=== PATIENT | male | born 1975 | race Caucasian/White ===

== ENCOUNTER 2024-03-19 10:49 | Outpatient (AMB) | payer OTHER, SELFPAY ==
--- NOTE | 2024-03-19 10:57 | MHC.PC.OV ---
Vital Signs 03/19/24 10:59 Height 6 ft 0.05 in Weight 218 lb 4 oz BMI 29.6 BP 138/88 Blood Pressure Location Rt brachial Position Sitting Pulse 55 Pulse Source Pulse Oximeter Temp 97.7 F Temp Source Oral Pulse Oximetry (%) 100 Oxygen Delivery Method Room Air Intake Visit Reasons: MAYELA from [facility] Intake Note: New patient visit Cigarette Lighter Repairer Required: No Allergies No Known Allergies Allergy (Verified 03/19/24 10:58) Medication List - Last Reconciled 03/19/24 by Amairani Mera PA-C No Known Home Meds Tobacco use date assessed: 03/19/24 Dental Screening Dental Screen Date: 03/19/24 Did you have a dental visit in the last 12 months?: Yes Did you have a dental problem in the last 6 months where you did not have access to dental care?: No Was dental information given to patient?: Patient has dentist HPI MAYELA from [facility] HPI Details Patient is a 48-year-old male with a significant past medical history of elevated blood pressure readings, vitamin B12 deficiency presenting today to [facility]. He states today that he is a bit tired more than normal but wonders if it is related to his lifestyle. He is very stressed out at work and does not like his job. He states that it is frustrating but he has to wait another year before he can retire. He wants to make sure that everything is healthy with him. His blood pressure is elevated today in the office at 138/88. It was elevated at [facility] in similar. He states that he does not want to take medications. His father did of an OH in his late 40s. His brother also has hypertension. He states that he is very conscientious of his diet and exercise. His is a nurse in a states that he will have her start checking his blood pressures because he really does not want to take anything for this. He states he is aware of untreated hypertension in the risks associated with it. He denies any chest pain or shortness on breath. 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 His maternal grandfather did have skin cancer he believes it was melanoma. He is not see a vp rheumatology. 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 1. Little interest or pleasure in doing things: not at all 2. Feeling down, depressed, or hopeless: not at all 3. Trouble falling or staying asleep, or sleeping too much: not at all 4. Feeling tired or having little energy: not at all 5. Poor appetite or overeating: not at all 6. Feeling bad about yourself - or that you are a failure or have let yourself or your family down: not at all 7. Trouble concentrating on things, such as reading the newspaper or watching television: not at all 8. Moving or speaking so slowly that other people could have noticed. Or the opposite - being so fidgety or restless that you have been moving around a lot more than usual: not at all 9. Thoughts that you would be better off or of hurting yourself in some way: not at all Total score: 0 Depression Screening Interpretation: Negative Depression Screening Done: Yes 58555 - PHQ-9 Billing: Yes Source: Developed by Drs. Brendan Kelley, Vi Conway, Jesus Hernandez and colleagues, with an educational rocael from [employer]. Thrive Questionnaire Date Thrive assessed: 03/19/24 I am a: Patient What is your living situation today?: I have a steady place to live Within the past 12 months, did the food you bought not last and you didn't have the money to get more?: Never true Within the past 12 months, did you worry whether your food would run out before you got money to buy more?: Never true Do you have trouble paying for medicines?: No Do you have trouble getting transportation to medical appointments?: No Do you have trouble paying your heating and electricity bill?: No Do you have trouble taking care of your child, family member or friend?: No Do you have trouble with day-to-day activities such as bathing, preparing meals, shopping, managing finances, etc.?: No Are you currently unemployed and looking for a job?: No Are you interested in more education?: No Please select the resources that you would like help with: None Currently or been in a relationship where the following occur: No concerns reported THRIVE Score: 0 AUDIT C Alcohol Use Questionnaire (AUDIT-C) 1. How often do you have a drink containing alcohol?: 2-4 times a month 2. How many drinks containing alcohol do you have on a typical day when you are drinking?: 3 or 4 3. How often do you have six or more drinks on one occasion?: Less than monthly Total Score: 4 NEREIDA-7 AMB Questionnaire NEREIDA-7 Date NEREIDA - 7 assessed: 03/19/24 Feeling nervous, anxious, or on edge: 0 = Not at all Not being able to stop or control worryin = Not at all Worrying too much about different things: 0 = Not at all Trouble relaxin = Not at all Being so restless that it is hard to sit still: 0 = Not at all Becoming easily annoyed or irritable: 0 = Not at all Feeling afraid as if something awful might happen: 0 = Not at all Total NEREIDA-7 score (0-4 normal; 5-9 mild; 10-14 moderate; 15-21 severe): 0 Source: Developed by Drs. Brendan Kelley, Vi Conway, Jesus Hernadnez and colleagues, with an educational rocael from [employer]. NEREIDA-7 Assessment Billing NEREIDA-7 Assessment Tool: NEREIDA-7 Assessment 57668 Physical exam (Primary Care) Vital Signs: Last Vital Signs Temp 97.7 F 03/19/24 10:59 Pulse 55 03/19/24 10:59 BP 138/88 03/19/24 10:59 Pulse Ox 100 03/19/24 10:59 Oxygen Delivery Method Room Air 03/19/24 10:59 BMI result Body Mass Index 29.6 Tobacco/Smoking Status: Tobacco use Status Tobacco use date assessed 03/19/24 03/19/24 11:07 Patient Tobacco Use Status Never used Tobacco 03/19/24 11:07 e-Cigarette/Vaping Use Never Used 03/19/24 11:07 PHQ-9: PHQ-9 Score PHQ-9: Total score 0 03/19/24 11:07 Depression Screening Interpretation: Negative Thrive Assessment: Date of Thrive Assessment Date Thrive assessed 03/19/24 03/19/24 11:12 Currently or been in a relationship where the following occur: No concerns reported Const Orientation/consciousness: patient oriented x3 HENMT Ears: hearing grossly normal bilaterally Neck Thyroid: Thyroid normal Lymphatic: no lymphadenopathy noted Resp Auscultation: clear to auscultation bilaterally Cardio Rate: regular rate Rhythm: regular rhythm Heart sounds: S1 normal heart sound present and S2 normal heart sound present GI Inspection: Yes normal to inspection Palpation (GI): Soft to palpation and Other GI palpation findings present (nontender, no cva tenderness) Auscultation: normoactive bowel sounds Rectal Exam - Male: Yes deferred Skin General skin exam: no rashes or lesions noted Neuro General: patient oriented x3, gait normal and no focal motor deficits Coding Level of Care Code Est Pt Level 4 (88310) Complex EM visit Add On G2211 Diagnoses Fatigue, unspecified type R53.83 Fatigue type: unspecified Elevated blood pressure reading R03.0 Family history of heart attack Z82.49 Family history of skin cancer Z80.8 Additional Codes NEREIDA-7 Assessment Billing - NEREIDA-7 Assessment Tool: NEREIDA-7 Assessment 95535 ([id number]) Assessment & Plan Assessment & Plan (1) Fatigue: Code(s): R53.83 - Other fatigue Category: Medical Qualifiers: Fatigue type: unspecified Qualified Code(s): R53.83 - Other fatigue Plan: Labs ordered today. We will follow up pending test results. (2) Elevated blood pressure reading: Code(s): R03.0 - Elevated blood-pressure reading, without diagnosis of hypertension Category: Medical Plan: We did discuss the risks associated with untreated hypertension. He will monitor blood pressures at home and follow up in 6 months. He will follow up sooner pressures are elevated at home. Labs ordered today. (3) Family history of heart attack: Code(s): Z82.49 - Family history of ischemic heart disease and other diseases of the circulatory system Category: Medical Plan: Coronary artery CT ordered. (4) Family history of skin cancer: Code(s): Z80.8 - Family history of malignant neoplasm of other organs or systems Category: Medical Plan: Referral to Dermatology. Orders: Orders Comprehensive [place]. Panel Fast Today R53.83 - Other fatigue, Z13.220 - Encounter for screening for lipoid disorders Complete Blood Count Auto Diff Today R53.83 - Other fatigue, Z13.220 - Encounter for screening for lipoid disorders IRON PROFILE Today R53.83 - Other fatigue, Z13.220 - Encounter for screening for lipoid disorders Prostate Specific Antigen Scr Today R53.83 - Other fatigue, Z01.89 - Encounter for other specified special examinations, Z13.220 - Encounter for screening for lipoid disorders UA CC w/rflx Micro + Cult Today Z13.220 - Encounter for screening for lipoid disorders Lyme IgG/IgM w/reflex to WB Today R53.83 - Other fatigue, Z13.220 - Encounter for screening for lipoid disorders TSH reflex Free T4 Today R53.83 - Other fatigue, Z13.220 - Encounter for screening for lipoid disorders Magnesium Today R53.83 - Other fatigue, Z13.220 - Encounter for screening for lipoid disorders Vitamin B12 and Folate Today R53.83 - Other fatigue, Z13.220 - Encounter for screening for lipoid disorders Ferritin Today R53.83 - Other fatigue, Z13.220 - Encounter for screening for lipoid disorders Testosterone, Free/Total Today R53.83 - Other fatigue, Z13.220 - Encounter for screening for lipoid disorders B Type Natriuretic Peptide Today R03.0 - Elevated blood-pressure reading, without diagnosis of hypertension, R53.83 - Other fatigue, Z82.49 - Family history of ischemic heart disease and other diseases of the circulatory system CT Coronary Calcium Score Today Z82.49 - Family history of ischemic heart disease and other diseases of the circulatory system Referrals Dermatology Referral Z12.83 - Encounter for screening for malignant neoplasm of skin, Z80.8 - Family history of malignant neoplasm of other organs or systems
[2024-03-19 10:59] VITALS: BP 138/88; PULSE 55; TEMP 36.5; O2SAT 100; BMI 29.6
== END 2024-03-19 11:44 | disposition home or self-care (01) ==
PROVIDERS: PCP Physician Assistant; Visit Provider Physician Assistant
DX: R53.83 Other fatigue (principal); R03.0 Elevated blood-pressure reading, without diagnosis of hypertension; Z82.49 Family history of ischemic heart disease and other diseases of the circulatory system; Z80.8 Family history of malignant neoplasm of other organs or systems

== ENCOUNTER → 2024-03-19 10:49 | Outpatient (BNVA) | payer OTHER, SELFPAY | PROVIDERS: PCP Physician Assistant; Visit Provider Physician Assistant | DX: R53.83 Other fatigue (principal); R03.0 Elevated blood-pressure reading, without diagnosis of hypertension; Z82.49 Family history of ischemic heart disease and other diseases of the circulatory system; Z80.8 Family history of malignant neoplasm of other organs or systems | CPT/HCPCS: 96127 ==

== ENCOUNTER 2024-03-19 11:46 | Outpatient (REF) | payer OTHER, SELFPAY ==
[2024-03-19 14:07] LABS: Appearance Urine Clear; Color Urine Yellow; Glucose Urine UA Negative (Negative); Leukocyte Esterase Urine Negative (Negative); Nitrite Urine Negative (Negative); Specific Gravity - Urine <= 1.005 (1.005-1.025); Urine Blood Negative (Negative); Urine Ketones Negative (Negative); Urine Protein Negative (Neg-Trace)
[2024-03-19 14:07] LABS: MANUAL DIFF FLAG NO
[2024-03-19 14:09] LABS: Basophils Absolute Auto 0.1 X10*3/uL (0.0-0.2); Basophils Percent Auto 1.8 % (0-2); Eosinophils Absolute Auto 0.1 X10*3/uL (0.0-0.4); Eosinophils Percent Auto 2.8 % (0-4); Hematocrit 45.5 % (42.0-52.0); Hemoglobin 15.6 g/dl (14.0-18.0); Lymphocytes Absolute Auto 1.4 X10*3/uL (1.2-4.9); Lymphocytes Percent Auto 34.3 % (20-40); Mean Corpuscular HGB Conc 34.3 g/dl (31.0-36.0); Mean Corpuscular Hemoglobin 33.4 pg (27.0-33.0); Mean Corpuscular Volume 97.4 fL (80.0-98.0); Mean Platelet Volume 10.9 fL (9.4-12.4); Monocytes Absolute Auto 0.4 X10*3/uL (0.1-1.2); Monocytes Percent Auto 11.1 % (2-11); Platelet Count 193 X10*3/uL (160-400); Red Blood Count 4.67 X10*6/uL (4.60-5.80); Red Cell Distribution Width 13.2 % (11.0-16.0)
[2024-03-19 14:36] LABS: Alanine Aminotransferase 41 U/L (0-40); Albumin Level 4.5 g/dL (3.5-5.0); Alkaline Phosphatase 42 U/L (39-117); Anion Gap 14 (12-20); Aspartate Amino Transferase 35 U/L (5-37); Blood Urea Nitrogen 11 mg/dL (9-16); Calcium 9.4 mg/dL (8.4-10.2); Carbon Dioxide 28 mmol/L (22-29); Chloride 99 mmol/L (96-108); Estimated Glomerular Filt Rate > 60; Glucose Fasting 76 mg/dL (60-99); Iron 165 mcg/dL (45-160); Magnesium 2.1 mg/dL (1.6-2.6); Percent Iron Saturation 55 % (15-50); Potassium 4.2 mmol/L (3.3-5.1); Sodium 137 mmol/L (135-145); Total Iron Binding Capacity 302 mcg/dL (228-428); Total Protein 7.3 g/dL (6.5-8.0); Unsaturated Iron Binding 137 ug/dL
[2024-03-19 14:37] LABS: B Type Natriuretic Peptide < 10 pg/mL (<100)
[2024-03-19 14:54] LABS: Ferritin 198 ng/mL (20-250); TSH reflex Free T4 1.93 uIU/mL (0.32-4.0)
[2024-03-19 14:58] LABS: Folate > 20.0 ng/mL (> or = 4.0); Prostate Specific Antigen Scr 1.69 ng/mL (<0.05-4.0); Vitamin B12 718 pg/mL (200-900)
[2024-03-21 03:18] LABS: Lyme Abs Screen <0.90 index
[2024-03-24 20:18] LABS: Testosterone, Free 101.4 pg/mL (35.0-155.0); Testosterone, Total 852 ng/dL (250-1100)
== END 2024-03-19 11:47 | disposition home or self-care (01) ==
LOC: HO.WFDLDS 11:46
PROVIDERS: Visit Provider Physician Assistant
DX: R53.83 Other fatigue (principal); R03.0 Elevated blood-pressure reading, without diagnosis of hypertension; Z82.49 Family history of ischemic heart disease and other diseases of the circulatory system; Z13.220 Encounter for screening for lipoid disorders; Z12.5 Encounter for screening for malignant neoplasm of prostate; Z01.89 Encounter for other specified special examinations
CPT/HCPCS: 36415; 80053; 81003; 82607; 82728; 82746; 83540; 83735; 83880; 84153; 84402; 84403; 84443; 85025; 86617; 86618

== ENCOUNTER 2024-04-08 09:47 | Outpatient (REF) | payer OTHER, SELFPAY | END 2024-04-08 09:48 | disposition home or self-care (01) | LOC: HO.US 09:47 | PROVIDERS: PCP Internal Medicine; Visit Provider Physician Assistant | DX: E83.19 Other disorders of iron metabolism (principal); R79.89 Other specified abnormal findings of blood chemistry | CPT/HCPCS: 76700 ==

== ENCOUNTER 2024-09-10 08:48 | Outpatient (REF) | payer OTHER, SELFPAY ==
--- NOTE | ~2024-09-10 | XR_ITS ---
EXAMINATION: XR CHEST CLINICAL INFORMATION: R06.09 - Other forms of dyspnea COMPARISON: None available. TECHNIQUE: 2 views of the chest were obtained. FINDINGS: No consolidation, pleural effusion or pneumothorax. Cardiomediastinal silhouette size is normal. Mild multilevel thoracic spondylosis. XR/XR chest 2V IMPRESSION: No acute airspace disease. Electronically signed by: Todd Lin MD 09/10/2024 02:54 PM EDT
--- OUTSIDE RECORDS SUMMARY | 2024-09-10 10:58 | XMS_ITS | Clinical Summary ---
Author Organization [facility] Address [address] [place] [address] Care Team Providers Care Junior Accountant Bookkeeper Name Role Phone Pcp, No Primary Care [...] age to complete this topic Care Teams Junior Accountant Bookkeeper Relationship Specialty Start Date End Date Pcp, No PCP - General General Medicine 05/10/23
== END 2024-09-10 08:49 | disposition home or self-care (01) ==
LOC: HO.XRAY 08:48
PROVIDERS: PCP Physician Assistant; Visit Provider Physician Assistant
DX: R06.09 Other forms of dyspnea (principal); R06.2 Wheezing; R05.3 Chronic cough
CPT/HCPCS: 71046; 93005

== ENCOUNTER 2024-09-10 08:48 | Outpatient (AMB) | payer OTHER, SELFPAY ==
--- OUTSIDE RECORDS SUMMARY | 2024-09-10 08:57 | XMS_ITS | Clinical Summary ---
Author Organization [facility] Address [address] [place] [address] Care Team Providers Care Training Project Manager Name Role Phone Pcp, No Primary Care Provider Unavailabl e Social History Tobacco Use Types Packs/Day Years Used Date Smoking Tobacco: Never Assessed Sex and Gender Information Value Date Recorded Sex Assigned at Not on file Gender Identity Not on file Sexual Orientation Not on file Plan of Treatment Health Maintenance Due Date Last Done Comments Hepatitis C Virus Screening 1975 HIV Screening 08/31/1988 DTaP/Tdap/Td Vaccines (1 - Tdap) 08/31/1994 Hepatitis B Vaccines (1 of 3 - 19+ 3-dose series) 08/31/1994 Colonoscopy 08/31/2020 Influenza Vaccine 01/09/2024 COVID-19 Vaccine (1 - 2023-2 5 season) 2024 Pneumococcal Vaccine: Pediat tristian (0-5 Years) and At-Risk Patients (6 to 49 Years) Aged Out No longer eligible b ased on patient's age to complete this topic Care Teams Training Project Manager Relationship Specialty Start Date End Date Pcp, No PCP - General General Medicine 05/10/23
--- OUTSIDE RECORDS SUMMARY | 2024-09-10 08:57 | XMS_ITS ---
Author Name [facility] Organization Unknown Problems Problem Status Onset Date Problem Type Date of Resoluti on Source Radiculopathy, lumbosacral region active EncounterDiagnosisAct CCT Encounters Encounter Type Encounter Reason Primary Diagnosis Location Date Ambulatory Radiculopathy, lumbosacral region Radiculopathy, lumbosacral region [employer] 05/10/2023 Care Team Organization Name Specialty Phone Email Start Date End [facility] 202306/19/2023 [employer] 05/10/2023 05/10/2023 [facility] 202201/27/2024 [employer] 05/10/2023 08/26/2024 [employer] NO PCP Primary Care
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
[2024-09-10 09:02] VITALS: BP 130/84
== END 2024-09-10 10:19 | disposition home or self-care (01) ==
LOC: HO.HMCFM 08:49
PROVIDERS: PCP Physician Assistant; Visit Provider Physician Assistant
DX: R06.09 Other forms of dyspnea (principal); R06.2 Wheezing; R05.3 Chronic cough

== ENCOUNTER → 2024-09-10 10:12 | Outpatient (BNV) | payer OTHER, SELFPAY | PROVIDERS: PCP Physician Assistant; Visit Provider Radiology Diagnostic Radiology | DX: R06.09 Other forms of dyspnea (principal) | CPT/HCPCS: 71046 ==

== ENCOUNTER → 2024-10-22 08:38 | Outpatient (REF) | payer OTHER, SELFPAY ==
--- NOTE | 2024-10-22 08:41 | CA_ITS ---
Acquisition Time: 2024-10-22 09:46:46 Total Exercise Time: 00:12:11 Test Indications: Dyspnea Medications: Protocol: AZAM Max HR: 146 BPM 85% of Pred: 171 BPM Max BP: 160/80 mmHG Max Work Load: 13.7 METS Exercise stress test with exercise 12 mins 11 secs of Azam Protocol, achieving 85% MPHR, with mild SOB towards the end of the exercise, no chest pain, without any arrythmias, with normotensive response to exercise. Without EKG changes meeting criteria for ischemia. In recovery, breathing returned to baseline. Test reviewed with Dr. Connelly. Referred By: Amairani Mera Electronically Signed By: Remington Calloway
--- NOTE | 2024-10-22 08:41 | CA_ITS ---
Transthoracic Echocardiogram Patient (Last, First, Middle): Elvin Conway, Gender: Male Date of : 1975 Age: 49 Procedure Date: 10/22/2024 Procedure Type: Transthoracic Echocardiogram Location: OP Height: 182.88 cm Weight: 90.72 kg BSA: 2.13 m2 Heart Rate: 54 bpm BP: 130 / 82 mmHg Window Shade Cutter And Mounter: SB/RC Referring MD: Amairani Mera PA-C Symptoms: R06.09 - Other forms of dyspnea Study Quality: Adequate ECG Rhythm: Bradycardia Conclusions: - 1. Normal LV ejection fraction of 60 65% 2. Mildly dilated left atrium 3. Normal cardiac valvular Dopplers 4. Mildly dilated ascending aorta at 4.2 cm 5. Normal RV systolic pressure 6. No gross pericardial effusion Findings Left Ventricle Normal left ventricular size, thickness, and systolic function. The visually estimated ejection fraction is between 60-65%. Spectral Doppler is indicative of a normal filling pattern. Right Ventricle Normal right ventricular cavity size and systolic function. Atria The left atrium is mildly dilated. There is no evidence of interatrial shunt. The right atrium is normal in size. Aortic Valve Normal aortic valve structure and function. There is no aortic valve stenosis. There is no aortic valve regurgitation. Mitral Valve Normal mitral valve structure and function. There is trace mitral valve regurgitation. There is no mitral valve stenosis. Pulmonic Valve The pulmonic valve is likely normal. There is trace pulmonic valve regurgitation. Tricuspid Valve Normal tricuspid valve structure. There is trace tricuspid valve regurgitation. The right ventricular systolic pressure is normal. The right ventricular systolic pressure is 21 mmHg. Normal right atrial pressure. There is no evidence of pulmonary hypertension. Great Vessels The pulmonary artery was not well visualized. There is mild dilatation of the ascending aorta measuring 4.20 cm. Venous The inferior vena cava is normal in size and collapses greater than 50% with inspiration. Pericardium/Pleural There is no evidence of pericardial effusion. Prior Study Comparison No prior study available for comparison. Measurements 2D Linear Measurements IVSd: 0.99 0.6-0.9/0.6-1.0 cm LVIDd: 5.76 3.9-5.3/4.2-5.9 cm LVIDd Index: 2.70 2.4-3.2/2.2-3.1 cm/m2 LVIDs: 3.62 2.0-3.6 cm LVPWd: 0.89 0.7-1.1 cm LA Diam: 4.10 2.7-3.8/3.0-4.0 cm LAIDs Index: 1.92 1.5-2.3 cm/m2 LV Mass: 264.12 67-162/88-224 g LV Mass Index: 124.00 43-95/49-115 g/m2 LVOT Diam: 2.60 3.0+(-)1.3 cm 2D Systolic Function EF 4C: 60.30 >55% EF 2C: 62.20 >55% EF BiP: 61.30 >55% Mitral Valve MV Pk E: 0.58 MV PK A: 0.50 MV Decel Time: 200.00 E/A: 1.20 E'Lateral: 10.20 E'Medial: 7.40 E/E' Med: 7.80 E/E' Lat: 5.70 PHT: 59.00 MVA PHT: 3.73 Decel Loving: 2.89 Aortic Valve AoV Pk Urban: 1.14 AoV Pk Grad: 5.00 EDUARDO: 5.12 LVOT LVOT Pk Urban: 1.10 LVOT Mn Urban: 0.75 LVOT VTI: 0.25 LVOT Pk Grad: 5.00 LVOT Mn Grad: 3.00 LVOT Diam: 2.60 LVOT Area: 5.31 Diastolic Function MV Pk E: 0.58 MV Pk A: 0.50 E/A: 1.20 E'Medial: 7.40 E/E' Med: 7.80 E' Laterial: 10.20 E/E' Lat: 5.70 Right Ventricle TAPSE (mm): 22.30 TVS' Urban: 12.00 Tricuspid Valve TR Pk Urban: 2.10 TR Pk Grad: 18.00 RA Press: 3.00 RVSP: 21.00 Great Vessels Aorta Sinus of Valsalva: 3.50 2.0-3.5 cm Ao Asc: 4.20 2.1-3.4 cm Pulmonary Valve PV Pk Urban: 0.65 Peak PV Grad: 2.00 Updated in Other Vendor System with Status of Final Frank Connelly MD electronically signed on 10/22/2024 7:26:10 PM with status of Final
--- OUTSIDE RECORDS SUMMARY | 2024-10-22 09:01 | XMS_ITS | Continuity of Care Document ---
Author Name [facility] Organization [facility] Care Team Providers Care Form Designer Name Role Phone [facility] Unavailable Unavailable Social History Combined list of available smoking, tobacco, and other social history from Department of Defense and Veterans Affairs facilities. Social History Type Response Date Comment Sourc e This section is an empty social history section. [facility]
--- OUTSIDE RECORDS SUMMARY | 2024-10-22 09:01 | XMS_ITS | Clinical Summary ---
Author Organization [facility] Address [address] [place] [address] Care Team Providers Care Pegger Dobby Looms Name Role Phone Pcp, No Primary Care Provider Unavailabl e Social History Tobacco Use Types Packs/Day Years Used Date Smoking Tobacco: Never Assessed Sex and Gender Information Value Date Recorded Sex Assigned at Not on file Legal Sex Male 10:00 AM EDT Gender Identity Not on file Sexual Orientation Not on file Plan of Treatment Health Maintenance Due Date Last Done Comments Hepatitis C Virus Screening 1975 HIV Screening 08/31/1988 DTaP/Tdap/Td Vaccines (1 - Tdap) 08/31/1994 Hepatitis B Vaccines (1 of 3 - 19+ 3-dose series) 08/31/1994 Colonoscopy 08/31/2020 COVID-19 Vaccine ( - 2023-2 5 season) 2024 Influenza Vaccine 01/08/2025 Pneumococcal Vaccine: Pediat tristian (0-5 Years) and At-Risk Patients (6 to 49 Years) Aged Out No longer eligible b ased on patient's age to complete this topic Insurance [place] [employer] Care Teams Pegger Dobby Looms Relationship Specialty Start Date End Date Pcp, No PCP - General General Medicine 05/10/23
== END ==
LOC: HO.CARD 08:38
PROVIDERS: PCP Physician Assistant; Visit Provider Physician Assistant
DX: R06.09 Other forms of dyspnea (principal); R03.0 Elevated blood-pressure reading, without diagnosis of hypertension; R06.2 Wheezing; Z82.49 Family history of ischemic heart disease and other diseases of the circulatory system
CPT/HCPCS: 93017; 93306

== ENCOUNTER → 2024-10-22 08:41 | Outpatient (BNV) | payer OTHER, SELFPAY | PROVIDERS: PCP Physician Assistant | DX: R06.02 Shortness of breath (principal); R94.31 Abnormal electrocardiogram [ECG] [EKG]; I77.810 Thoracic aortic ectasia | CPT/HCPCS: 93016; 93018; 93320; 93325; 93350 ==

== ENCOUNTER 2024-11-03 09:18 | Outpatient (AMB) | payer OTHER, SELFPAY ==
[2024-11-03 09:25] VITALS: BP 118/84; PULSE 58; O2SAT 99; BMI 29.6
--- NOTE | 2024-11-03 09:25 | MHC.OFFVIS ---
Vital Signs 11/03/24 09:25 Height 6 ft Weight 218 lb BMI 29.6 BP 118/84 Blood Pressure Location Rt brachial Position Sitting Pulse 58 Pulse Source Pulse Oximeter Pulse Oximetry (%) 99 Oxygen Delivery Method Room Air Intake Visit Reasons: Wheezing/Dyspnea Allergies No Known Allergies Allergy (Verified 11/03/24 09:28) HPI HPI Wheezing/Dyspnea: Details: Elvin is a pleasant 49-year-old male, never smoker, with underlying elevated blood pressure. He was referred by PCP for pulmonary evaluation for ongoing episodes of dyspnea that occurs at rest and has been more noticeable since having pleurisy in his 20s. He maintains an active lifestyle and denies respiratory symptoms with activity. 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 He denies prior h/o asthma however recalled having an asthma exacerbation as a young teen requiring an inhaler however did not use and has never used once since. He denies h/o recurrent respiratory infections. He reports occupational exposures while in the [employer] x 7 years with exposure to aqueous film-forming foam. He reports intermittent mild seasonal allergies. He reports minimal second hand smoke exposure. PCP also send for cardiac work up for dyspnea, reportedly echo and stress test unremarkable. He reports father and paternal aunt with some respiratory condition however can not recall. 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 Current occupational exposures/hazards: No Cognitive needs: No Hearing needs: No Vision needs: No Review of Systems Const Denies chills, Denies excessive sweating, Denies fever(s), Denies headache(s) and Denies night sweats Eyes Denies dry eyes, Denies irritation and Denies itchy eyes ENT Reports Normal hearing present, Denies headache(s), Denies nasal congestion, Denies nasal discharge, Denies post nasal drip and Denies sore throat Card Denies chest pain, Denies chest pain at rest, Denies chest pain with activity, Denies claudication, Denies leg edema, Denies orthopnea and Denies paroxysmal nocturnal dyspnea Resp Denies chest congestion, Denies cough, Denies excessive phlegm production, Denies pain on inspiration, Denies pain with cough and Denies stridor Musc Denies myalgias Neuro Reports Normal hearing present and Denies headache(s) Endo Denies excessive sweating Remberto/Lymph Denies lymphadenopathy Aller/Immun Denies itchy eyes and Denies seasonal rhinorrhea Physical Exam Vital Signs: BMI result Body Mass Index 29.6 Const General: cooperative, healthy appearing, comfortable, no acute distress, well developed and alert Orientation/consciousness: patient oriented x3 Limitations: no limitations HEENT Head: Yes normal to inspection, Yes normocephalic and Yes atraumatic Ears: hearing grossly normal bilaterally and external ears normal Eyes General: appearance normal, both eyes and all related structures Eyelids: Yes eyelids normal Sclerae: sclerae normal EOM: EOMs intact bilaterally Neck Neck: Yes normal visual inspection and Yes no lymphadenopathy Lymphatic: no lymphadenopathy noted Chest Chest palpation & inspection: normal inspection of the chest Resp Effort & Inspection: normal respiratory effort, able to speak in complete sentences, no audible wheezes, no cough, no stridor, not tachypneic, no tripod positioning and no use of accessory muscles Auscultation: clear to auscultation bilaterally Cardio Jugular venous distension: no JVD Rate: regular rate Rhythm: regular rhythm Skin Other: warm, dry General skin exam: no rashes or lesions noted Neuro General: patient oriented x3 Cranial nerves: Yes Normal hearing present Cognition (Neuro): normal cognition Gait exam (Neuro): Normal gait present Extrem General: Yes normal to inspection, Yes capillary refill normal, Yes no clubbing, cyanosis or edema and Yes no pedal edema Psych Appearance: grossly normal and well kempt Speech and movement: Normal speech and movement present and Clear speech present Affect: normal affect Attitude: cooperative Thought process: Normal thought process present Thought content: Normal thought content present Insight: Good insight present (Psych) Judgement: Good judgement present (Psych) Assessment & Plan Assessment & Plan (1) Dyspnea: Code(s): R06.00 - Dyspnea, unspecified Category: Medical Plan Elvin presents for dyspnea which occurs at rest, denies any respiratory symptoms with exertion. Remote h/o asthma possible RAD vs asthma related to prior occupational exposures, however less likely as patient with very intermittent symptoms, reports 6 times year with no known triggers. Recent cardiac workup reportedly unremarkable. No h/o anemia. Will send for PFT to assess for obstructive defect. PCP placed order for Chest CT as CXR unremarkable. All questions were answered and patient is in agreement of plan. Will follow up to review results or sooner if needed. Orders: Orders PFT pulmonary function test Today R06.00 - Dyspnea, unspecified Coding Level of Care Code New Pt Level 3 (72387) Diagnoses Dyspnea R06.00
--- OUTSIDE RECORDS SUMMARY | 2024-11-03 09:51 | XMS_ITS | Continuity of Care Document ---
Author Name [facility] Organization [facility] Care Team Providers Care Biostatistics Professor Name Role Phone [facility] Unavailable Unavailable Social History Combined list of available smoking, tobacco, and other social history from Department of Defense and Veterans Affairs facilities. Social History Type Response Date Comment Sourc e This section is an empty social history section. DoD
== END 2024-11-03 09:49 | disposition home or self-care (01) ==
LOC: HO.HPSW 09:18
PROVIDERS: PCP Physician Assistant; Referring Provider Physician Assistant; Visit Provider Nurse Practitioner Family
DX: R06.00 Dyspnea, unspecified (principal)
CPT/HCPCS: 99203

== ENCOUNTER 2024-12-23 09:45 | Outpatient (AMB) | payer OTHER, SELFPAY ==
--- NOTE | 2024-12-23 09:56 | A.OFFVIS_ITS ---
Vital Signs 12/23/24 09:57 Height 6 ft Weight 222 lb 4 oz BMI 30.1 BP 126/88 Blood Pressure Location Rt brachial Position Sitting Pulse 59 Pulse Source Pulse Oximeter Pulse Oximetry (%) 98 Oxygen Delivery Method Room Air Intake Visit Reasons: Wheezing/Dyspnea Allergies No Known Allergies Allergy (Verified 12/23/24 09:58) HPI HPI Wheezing/Dyspnea: Details: Elvin is a pleasant 49-year-old male, never smoker, with underlying elevated blood pressure. He was initially referred by PCP for pulmonary evaluation for ongoing episodes of dyspnea that occurs at rest and has been more noticeable since having pleurisy in his 20s. He reports having hemoptysis and possible pleural effusion related to pleurisy while in [employer] training school. Due to this patient was told that there is likely scar tissue from this event which could potentially worsen, and is questioning the possible complications from this incident. He was sent by PCP for chest CT however has been denied by insurance. Prior CXR unremarkable. Patient continues with episodes of dyspea as well as intermittent dry cough. He continues to live an active lifestyle, however feels exercise tolerance has diminished over the years. At the last visit, he was sent for PFT which is scheduled in the next few weeks. 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 Current occupational exposures/hazards: No Cognitive needs: No Hearing needs: No Vision needs: No Review of Systems Const Denies chills, Denies excessive sweating, Denies fever(s), Denies headache(s) and Denies night sweats Eyes Denies dry eyes, Denies irritation and Denies itchy eyes ENT Reports Normal hearing present, Denies headache(s), Denies nasal congestion, Den ies nasal discharge, Denies post nasal drip and Denies sore throat Card Denies chest pain, Denies chest pain at rest, Denies chest pain with activity, Denies claudication, Denies leg edema, Denies orthopnea and Denies paroxysmal nocturnal dyspnea Resp Denies chest congestion, Denies excessive phlegm production, Denies pain on inspiration, Denies pain with cough, Denies stridor and Denies wheezing Musc Denies myalgias Neuro Reports Normal hearing present and Denies headache(s) Endo Denies excessive sweating Remberto/Lymph Denies lymphadenopathy Aller/Immun Denies itchy eyes, Denies seasonal rhinorrhea and Denies wheezing Physical Exam Vital Signs: Last Vital Signs Pulse 59 12/23/24 09:57 BP 126/88 12/23/24 09:57 Pulse Ox 98 12/23/24 09:57 Oxygen Delivery Method Room Air 12/23/24 09:57 BMI result Body Mass Index 30.1 Const General: cooperative, healthy appearing, comfortable, no acute distress, well developed and alert Orientation/consciousness: patient oriented x3 Limitations: no limitations HEENT Head: Yes normal to inspection, Yes normocephalic and Yes atraumatic Ears: hearing grossly normal bilaterally and external ears normal Eyes General: appearance normal, both eyes and all related structures Eyelids: Yes eyelids normal Sclerae: sclerae normal EOM: EOMs intact bilaterally Neck Neck: Yes normal visual inspection and Yes no lymphadenopathy Lymphatic: no lymphadenopathy noted Chest Chest palpation & inspection: normal inspection of the chest Resp Effort & Inspection: normal respiratory effort, able to speak in complete sentences, no audible wheezes, no cough, no stridor, not tachypneic, no tripod positioning and no use of accessory muscles Auscultation: clear to auscultation bilaterally Cardio Jugular venous distension: no JVD Rate: regular rate Rhythm: regular rhythm Skin Other: warm, dry General skin exam: no rashes or lesions noted Neuro General: patient oriented x3 Cranial nerves: Yes Normal hearing present Cognition (Neuro): normal cognition Gait exam (Neuro): Normal gait present Extrem General: Yes normal to inspection, Yes capillary refill normal, Yes no clubbing, cyanosis or edema and Yes no pedal edema Psych Appearance: grossly normal and well kempt Speech and movement: Normal speech and movement present and Clear speech present Affect: normal affect Attitude: cooperative Thought process: Normal thought process present Thought content: Normal thought content present Insight: Good insight present (Psych) Judgement: Good judgement present (Psych) Assessment & Plan Assessment & Plan (1) Dyspnea: Code(s): R06.00 - Dyspnea, unspecified Category: Medical Plan Elvin presents for dyspnea which occurs at rest and feels exercise tolerance has overall diminished over the last few years. He does have upcoming PFT to assess for asthma, prior h/o possible RAD vs asthma. Cardiology work up revealed no ischemic changes on EKG during stress test, however patient noted significant dyspnea and overall fatigue towards the end of the test. Echo revealed mild dilation of left atrium otherwise unremarkable. He does note stressful occupation contributing to HTN and will be retiring in the next few weeks hopefu l that elevated BP will resolve. PCP placed order for Chest CT as CXR unremarkable however not covered by insurance until PFT performed. Will follow up to review results of PFT and CT if approved. All questions were answered and patient is in agreement of plan. Coding Level of Care Code Est Pt Level 3 (55315) Diagnoses Dyspnea R06.00
[2024-12-23 09:57] VITALS: BP 126/88; PULSE 59; O2SAT 98; BMI 30.1
--- OUTSIDE RECORDS SUMMARY | 2024-12-23 10:19 | XMS_ITS | Continuity of Care Document ---
Author Name [facility] Organization [facility] Care Team Providers Care Enchilada Maker Name Role Phone [facility] Unavailable Unavailable Social History Combined list of available smoking, tobacco, and other social history from Department of Defense and Veterans Affairs facilities. Social History Type Response Date Comment Sourc e This section is an empty social history section. DoD
--- OUTSIDE RECORDS SUMMARY | 2024-12-23 10:20 | XMS_ITS ---
Author Name [facility] Organization Unknown Problems Problem Status Onset Date Problem Type Date of Resoluti on Source Radiculopathy, lumbosacral region active EncounterDiagnosisAct CCT Encounters Encounter Type Encounter Reason Primary Diagnosis Location Date Ambulatory Radiculopathy, lumbosacral region Radiculopathy, lumbosacral region [place] [facility] 05/10/2023 Care Team Organization Name Specialty Phone Email Start Date End [facility] 202306/19/2023 [place] [facility] 05/10/2023 08/26/2024 [facility] 202201[facility]27/2024 [facility]23 05/10/2023 [place] [facility] NO PCP Primary Care
--- OUTSIDE RECORDS SUMMARY | 2024-12-23 10:21 | XMS_ITS | Clinical Summary ---
Author Organization [facility] Address [address] [place] [address] Care Team Providers Care Manager Financial Systems Name Role Phone Pcp, No Primary Care [...] patient's age to complete this topic Insurance [place] [employer] Care Teams Manager Financial Systems Relationship Specialty Start Date End Date Pcp, No PCP - General General Medicine 05/10/23
== END 2024-12-23 10:22 | disposition home or self-care (01) ==
LOC: HO.HPSW 09:46
PROVIDERS: PCP Physician Assistant; Visit Provider Nurse Practitioner Family
DX: R06.00 Dyspnea, unspecified (principal)
CPT/HCPCS: 99213

== ENCOUNTER 2025-01-28 07:52 | Outpatient (REF) | payer OTHER, SELFPAY ==
--- OUTSIDE RECORDS SUMMARY | 2025-01-28 07:55 | XMS_ITS | Continuity of Care Document ---
Author Name [facility] Organization [facility] Care Team Providers Care Jet Blade Polisher Name Role Phone [facility] Unavailable Unavailable Social History Combined list of available smoking, tobacco, and other social history from Department of Defense and Veterans Affairs facilities. Social History Type Response Date Comment Sourc e This section is an empty social history section. DoD
--- OUTSIDE RECORDS SUMMARY | 2025-01-28 07:57 | XMS_ITS | Clinical Summary ---
Author Organization [facility] Address [address] [place] [address] Care Team Providers Care Space Sciences Director Name Role Phone Pcp, No Primary Care [...] patient's age to complete this topic Insurance [employer] Care Teams Space Sciences Director Relationship Specialty Start Date End Date Pcp, No PCP - General General Medicine 05/10/23
--- NOTE | 2025-01-28 08:06 | PFT_ITS ---
Indication: Dyspnea Spirometry FEV1 to FVC 76%; FEV1 4.02 L; FVC 5.29 L. No significant response to bronchodilators noted. Lung Volumes Total lung capacity 94% predicted; residual volume 100% predicted Diffusion Capacity DLCO 112% predicted Flow Volume Loops [The patient was gasping during the maneuvers therefore the flow volume loops are limited] Comparisons None Interpretation No obstructive nor restrictive ventilatory defects identified. No significant response to bronchodilators noted. Lung volumes and diffusing capacity both within normal limits. Flow volume loop was abnormal based on the gasping during the procedure. If asthma is in the differential methacholine challenge may be helpful in assessing for hyperreactive airways. Clinical correlation warranted. MTDD
[2025-01-28 08:53] VITALS: PULSE 62; O2SAT 99
== END 2025-01-28 07:53 | disposition home or self-care (01) ==
LOC: HO.RESP 07:52
PROVIDERS: PCP Physician Assistant; Visit Provider Nurse Practitioner Family
DX: R06.00 Dyspnea, unspecified (principal)
CPT/HCPCS: 94010; 94640; 94727; 94729

== ENCOUNTER → 2025-01-28 08:06 | Outpatient (BNV) | payer OTHER, SELFPAY | PROVIDERS: PCP Physician Assistant; Visit Provider Hospitalist | DX: R06.00 Dyspnea, unspecified (principal) | CPT/HCPCS: 94060; 94727; 94729 ==

== ENCOUNTER 2025-02-19 11:07 | Outpatient (AMB) | payer OTHER, SELFPAY ==
[2025-02-19 11:09] VITALS: BP 138/86; PULSE 65; O2SAT 98; BMI 29.5
--- NOTE | 2025-02-19 11:09 | MHC.OFFVIS ---
Vital Signs 02/19/25 11:09 Height 6 ft Weight 217 lb 8 oz BMI 29.5 BP 138/86 Blood Pressure Location Rt brachial Position Sitting Pulse 65 Pulse Source Pulse Oximeter Pulse Oximetry (%) 98 Oxygen Delivery Method Room Air Intake Visit Reasons: Wheezing/Dyspnea Allergies No Known Allergies Allergy (Verified 02/19/25 11:12) HPI HPI Wheezing/Dyspnea: Details: Elvin is a pleasant 49-year-old male, never smoker, with underlying elevated blood pressure. He was initially referred by PCP for pulmonary evaluation for ongoing episodes of dyspnea that occurs at rest and has been more noticeable since having pleurisy in his 20s. 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 Due to this patient was told that there is likely scar tissue from this event which could potentially worsen, and is questioning the possible complications from this incident. He was sent by PCP for chest CT however has been denied by insurance, continuing to await approval. Prior CXR unremarkable. Patient continues with episodes of dyspnea as well as intermittent dry cough and decreased exercise tolerance. Today he presents to review PFT results. He denies any visits to urgent care or hospitalizations related to respiratory distress since the last visit. 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 Current occupational exposures/hazards: No Cognitive needs: No Hearing needs: No Vision needs: No Review of Systems Const Denies chills, Denies excessive sweating, Denies fever(s), Denies headache(s) and Denies night sweats Eyes Denies dry eyes, Denies irritation and Denies itchy eyes ENT Reports Normal hearing present, Denies headache(s), Denies nasal congestion, Denies nasal discharge, Denies post nasal drip and Denies sore throat Card Denies chest pain, Denies chest pain at rest, Denies chest pain with activity, Denies claudication, Denies leg edema, Denies orthopnea and Denies paroxysmal nocturnal dyspnea Resp Denies chest congestion, Denies excessive phlegm production, Denies pain on inspiration, Denies pain with cough, Denies stridor and Denies wheezing Musc Denies myalgias Neuro Reports Normal hearing present and Denies headache(s) Endo Denies excessive sweating Remberto/Lymph Denies lymphadenopathy Aller/Immun Denies itchy eyes, Denies seasonal rhinorrhea and Denies wheezing Physical Exam Vital Signs: Last Vital Signs Pulse 65 02/19/25 11:09 BP 138/86 02/19/25 11:09 Pulse Ox 98 02/19/25 11:09 Oxygen Delivery Method Room Air 02/19/25 11:09 BMI result Body Mass Index 29.5 Const General: cooperative, healthy appearing, comfortable, no acute distress, well developed and alert Orientation/consciousness: patient oriented x3 Limitations: no limitations HEENT Head: Yes normal to inspection, Yes normocephalic and Yes atraumatic Ears: hearing grossly normal bilaterally and external ears normal Eyes General: appearance normal, both eyes and all related structures Eyelids: Yes eyelids normal Sclerae: sclerae normal EOM: EOMs intact bilaterally Neck Neck: Yes normal visual inspection and Yes no lymphadenopathy Lymphatic: no lymphadenopathy noted Chest Chest palpation & inspection: normal inspection of the chest Resp Effort & Inspection: normal respiratory effort, able to speak in complete sentences, no audible wheezes, no cough, no stridor, not tachypneic, no tripod positioning and no use of accessory muscles Auscultation: clear to auscultation bilaterally Cardio Jugular venous distension: no JVD Rate: regular rate Rhythm: regular rhythm Skin Other: warm, dry General skin exam: no rashes or lesions noted Neuro General: patient oriented x3 Cranial nerves: Yes Normal hearing present Cognition (Neuro): normal cognition Gait exam (Neuro): Normal gait present Extrem General: Yes normal to inspection, Yes capillary refill normal, Yes no clubbing, cyanosis or edema and Yes no pedal edema Psych Appearance: grossly normal and well kempt Speech and movement: Normal speech and movement present and Clear speech present Affect: normal affect Attitude: cooperative Thought process: Normal thought process present Thought content: Normal thought content present Insight: Good insight present (Psych) Judgement: Good judgement present (Psych) Assessment & Plan Assessment & Plan (1) Asthma: Code(s): J45.909 - Unspecified asthma, uncomplicated Category: Medical (2) Dyspnea: Code(s): R06.00 - Dyspnea, unspecified Category: Medical Plan Reviewed PFT which revealed no obstructive nor restrictive ventilatory defects identified. No significant response to bronchodilators noted. Lung volumes within normal limits, diffusion capacity elevated which could be suggestive of asthma as well as abnormal flow volume loop due to gasping during the procedure. We discussed methacholine challenge to better assess for hyperreactive airways, however will defer at this time. Will trial ICS given possible asthma. Reviewed importance of good oral hygiene to prevent thrush. Given that patient had significant difficulties performing PFT, chest CT should be performed to assess for any underlying parenchymal condition. Will attempt to send. All questions were answered and patient is in agreement of plan. Medications: New fluticasone furoate 100 mcg/actuation (Arnuity Ellipta) 1 inh inhalation DAILY 30 ea 0RF Coding Level of Care Code Est Pt Level 4 (02590) Diagnoses Asthma J45.909 Dyspnea R06.00
--- OUTSIDE RECORDS SUMMARY | 2025-02-19 13:06 | XMS_ITS | Clinical Summary ---
Author Organization [facility] Address [address] [place] [address] Care Team Providers Care Padded Box Sewer Name Role Phone Pcp, No Primary Care [...] patient's age to complete this topic Insurance [place] [employer] Care Teams Padded Box Sewer Relationship Specialty Start Date End Date Pcp, No PCP - General General Medicine 05/10/23
== END 2025-02-19 11:36 | disposition home or self-care (01) ==
LOC: HO.HPSW 11:08
PROVIDERS: PCP Physician Assistant; Visit Provider Nurse Practitioner Family
DX: J45.909 Unspecified asthma, uncomplicated (principal); R06.00 Dyspnea, unspecified
CPT/HCPCS: 99214

== ENCOUNTER 2025-04-24 08:55 | Outpatient (REF) | payer OTHER, SELFPAY ==
--- NOTE | ~2025-04-24 | CT_ITS ---
EXAMINATION: CT CHEST WITHOUT CONTRAST CLINICAL INFORMATION: Abnormal pulmonary function tests COMPARISON: None available. TECHNIQUE: Multidetector volumetric CT imaging of the chest was done. Axial MIP volume rendering provided. Sagittal and coronal reformatted images were obtained. This CT examination was performed using dose optimization techniques as appropriate, variously including the following: *Automated exposure control *Adjustment of mA and/or kV according to patient size (this includes techniques or standardized protocols for targeted exams where dose is matched to indication/reason for exam; i.e. extremities or head) *Use of iterative reconstruction technique FINDINGS: LUNGS: Trachea and central airway are patent. Mild right apical pleural parenchymal scarring. 5 mm nodule right upper lobe (3:120) . No confluent consolidation is seen. MEDIASTINUM: Normal heart size. No pericardial effusion. No pathologically enlarged mediastinal or hilar lymph nodes. Ascending aorta measures 4 cm. CORONARY ARTERY CALCIFICATION: Present PLEURA: There is no pleural effusion. No pleural mass or thickening. AXILLA: No lymphadenopathy. UPPER ABDOMEN: Unremarkable. CHEST WALL: Unremarkable OSSEOUS STRUCTURES: No acute or suspicious osseous abnormality CT/CT chest wo IV con IMPRESSION: * 5 mm pulmonary nodule in the right upper lobe. According to the UPDATED 2017 Fleischner Society recommendations, the advised follow-up imaging for solid nodules < 6 mm is: LOW RISK PATIENT: No routine follow-up. HIGH RISK PATIENT: Optional CT at 12 months. *Ascending aorta measures 4 cm. Fleischner guidelines were followed. Electronically signed by: Nick Green MD 04/26/2025 08:21 AM [facility]
--- OUTSIDE RECORDS SUMMARY | 2025-04-24 08:58 | XMS_ITS | Clinical Summary ---
Author Organization [facility] Address [address] [place] [address] Care Team Providers Care Live In Housekeeper Name Role Phone Pcp, No Primary Care [...] 3-dose series) 08/31/1994 Colonoscopy 08/31/2020 Influenza Vaccine 01/08/2025 COVID-19 Vaccine ( - 2023-2 5 season) 2025 Pneumococcal Vaccine: Pediat tristian (0-5 Years) and At-Risk Patients (6 to 49 Years) Aged Out No longer eligible b ased on patient's age to complete this topic Insurance [employer] [employer] Care Teams Live In Housekeeper Relationship Specialty Start Date End Date Pcp, No PCP - General General Medicine 05/10/23
== END 2025-04-24 08:56 | disposition home or self-care (01) ==
LOC: HO.CT 08:55
PROVIDERS: PCP Physician Assistant; Visit Provider Nurse Practitioner Family
DX: R94.2 Abnormal results of pulmonary function studies (principal)
CPT/HCPCS: 71250

== ENCOUNTER → 2025-04-24 08:57 | Outpatient (BNV) | payer OTHER, SELFPAY | PROVIDERS: PCP Physician Assistant; Visit Provider Radiology Diagnostic Ultrasound | DX: R91.1 Solitary pulmonary nodule (principal); I71.21 Aneurysm of the ascending aorta, without rupture | CPT/HCPCS: 71250 ==

== ENCOUNTER 2025-05-04 10:01 | Outpatient (AMB) | payer OTHER, SELFPAY ==
--- NOTE | 2025-05-04 10:04 | MHC.OFFVIS ---
Vital Signs 05/04/25 10:05 Height 6 ft Weight 223 lb 6 oz BMI 30.3 BP 138/76 Blood Pressure Location Rt brachial Position Sitting Pulse 65 Pulse Source Pulse Oximeter Pulse Oximetry (%) 99 Oxygen Delivery Method Room Air Intake Visit Reasons: Wheezing/Dyspnea CT FU Allergies No Known Allergies Allergy (Verified 05/04/25 10:07) HPI HPI Wheezing/Dyspnea CT FU: Details: Elvin is a pleasant 49-year-old male, never smoker, with underlying elevated blood pressure. He was initially referred by PCP for pulmonary evaluation for ongoing episodes of dyspnea that occurs at rest and has been more noticeable since having pleurisy in his 20s. Patient continues with episodes of dyspnea as well as intermittent dry cough and decreased exercise tolerance. Prior PFT abnormal with elevated DLCO and patient had difficulties with testing leading to some inaccuracies. 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 Today he presents to review chest CT results. 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 Current occupational exposures/hazards: No Cognitive needs: No Hearing needs: No Vision needs: No Review of Systems Const Denies chills, Denies excessive sweating, Denies fever(s), Denies headache(s) and Denies night sweats Eyes Denies dry eyes, Denies irritation and Denies itchy eyes ENT Reports Normal hearing present, Denies headache(s), Denies nasal congestion, Denies nasal discharge, Denies post nasal drip and Denies sore throat Card Denies chest pain, Denies chest pain at rest, Denies chest pain with activity, Denies claudication, Denies leg edema, Reports dyspnea on exertion, Denies orthopnea and Denies paroxysmal nocturnal dyspnea Resp Denies change in phlegm color, Denies chest congestion, Reports cough, Denies hemoptysis, Denies excessive phlegm production, Denies pain on inspiration, Denies pain with cough, Reports dyspnea on exertion, Denies stridor and Denies wheezing Musc Denies myalgias Neuro Reports Normal hearing present and Denies headache(s) Endo Denies excessive sweating Remberto/Lymph Denies lymphadenopathy Aller/Immun Denies itchy eyes, Denies seasonal rhinorrhea and Denies wheezing Physical Exam Vital Signs: Last Vital Signs Pulse 65 05/04/25 10:05 BP 138/76 05/04/25 10:05 Pulse Ox 99 05/04/25 10:05 Oxygen Delivery Method Room Air 05/04/25 10:05 BMI result Body Mass Index 30.3 Const General: cooperative, healthy appearing, comfortable, no acute distress, well developed and alert Orientation/consciousness: patient oriented x3 Limitations: no limitations HEENT Head: Yes normal to inspection, Yes normocephalic and Yes atraumatic Ears: hearing grossly normal bilaterally and external ears normal Eyes General: appearance normal, both eyes and all related structures Eyelids: Yes eyelids normal Sclerae: sclerae normal EOM: EOMs intact bilaterally Neck Neck: Yes normal visual inspection and Yes no lymphadenopathy Lymphatic: no lymphadenopathy noted Chest Chest palpation & inspection: normal inspection of the chest Resp Effort & Inspection: normal respiratory effort, able to speak in complete sentences, no audible wheezes, no cough, no stridor, not tachypneic, no tripod positioning and no use of accessory muscles Auscultation: clear to auscultation bilaterally Cardio Jugular venous distension: no JVD Rate: regular rate Rhythm: regular rhythm Skin Other: warm, dry General skin exam: no rashes or lesions noted Neuro General: patient oriented x3 Cranial nerves: Yes Normal hearing present Cognition (Neuro): normal cognition Gait exam (Neuro): Normal gait present Extrem General: Yes normal to inspection, Yes capillary refill normal, Yes no clubbing, cyanosis or edema and Yes no pedal edema Psych Appearance: grossly normal and well kempt Speech and movement: Normal speech and movement present and Clear speech present Affect: normal affect Attitude: cooperative Thought process: Normal thought process present Thought content: Normal thought content present Insight: Good insight present (Psych) Judgement: Good judgement present (Psych) Results Reviewed Results Reviewed: [address] [place] [address] CT Scan Report Signed Patient: Elvin Conway MR#: [id number] : 1975 Acct:[id number] Age/Sex: 49 / M ADM Date: 04/24/25 Loc: HO.CT Attending Dr: Hailey Pedro NP Ordering Physician: Hailey Pedro NP Date of Service: 04/24/25 Procedure(s): CT chest wo IV con Accession Number(s): [id number] cc: Amairani Mera; Hailey Pedro NP~ Report Number: [id number]: Total DLP = 498.00 mGy-cm Reason for Exam: R94.2 - Abnormal results of pulmonary function studies EXAMINATION: CT CHEST WITHOUT CONTRAST CLINICAL INFORMATION: Abnormal pulmonary function tests COMPARISON: None available. TECHNIQUE: Multidetector volumetric CT imaging of the chest was done. Axial MIP volume rendering provided. Sagittal and coronal reformatted images were obtained. This CT examination was performed using dose optimization techniques as appropriate, variously including the following: *Automated exposure control *Adjustment of mA and/or kV according to patient size (this includes techniques or standardized protocols for targeted exams where dose is matched to indication/reason for exam; i.e. extremities or head) *Use of iterative reconstruction technique FINDINGS: LUNGS: Trachea and central airway are patent. Mild right apical pleural parenchymal scarring. 5 mm nodule right upper lobe (3:120) . No confluent consolidation is seen. MEDIASTINUM: Normal heart size. No pericardial effusion. No pathologically enlarged mediastinal or hilar lymph nodes. Ascending aorta measures 4 cm. CORONARY ARTERY CALCIFICATION: Present PLEURA: There is no pleural effusion. No pleural mass or thickening. AXILLA: No lymphadenopathy. UPPER ABDOMEN: Unremarkable. CHEST WALL: Unremarkable OSSEOUS STRUCTURES: No acute or suspicious osseous abnormality CT/CT chest wo IV con IMPRESSION: * 5 mm pulmonary nodule in the right upper lobe. According to the UPDATED 2017 Fleischner Society recommendations, the advised follow-up imaging for solid nodules < 6 mm is: LOW RISK PATIENT: No routine follow-up. HIGH RISK PATIENT: Optional CT at 12 months. *Ascending aorta measures 4 cm. Fleischner guidelines were followed. Electronically signed by: Nick Green MD 04/26/2025 08:21 AM EST RP Dictated By: Nick Green MD Signed By: <Electronically signed by Nick Green MD in OV> 04/26/25820 DD/ 1 TD/TT: 04/24/25930 Building Dismantler: FRANCISCO Assessment & Plan Assessment & Plan (1) Asthma: Code(s): J45.909 - Unspecified asthma, uncomplicated Category: Medical (2) Dyspnea: Code(s): R06.00 - Dyspnea, unspecified Category: Medical (3) Pulmonary nodule: Code(s): R91.1 - Solitary pulmonary nodule Category: Medical Plan Reviewed chest CT which demonstrated a 5 mm nodule of the right upper lobe, otherwise no abnormalities contributing to respiratory symptoms. Will repeat chest CT in 1 year to assess stability of pulmonary nodule. There was an incidental finding of the ascending aorta measuring 4 cm, will send message to PCP for further evaluation and monitoring. Patient plans to car pick up driver Arnuity in the near future to trial. Will also send in albuterol MDI to use PRN. He is aware to call if symptoms change. All questions were answered and patient is in agreement of plan. Will follow-up in 3 months or sooner if needed. Orders: Orders CT chest wo IV con 11 Months R91.1 - Solitary pulmonary nodule Medications: New albuterol sulfate 90 mcg/actuation 2 puffs inhalation Q4-6H PRN 1 ea 3RF shortness of breath or wheezing Coding Level of Care Code Est Pt Level 4 (23473) Diagnoses Asthma J45.909 Dyspnea R06.00 Pulmonary nodule R91.1
[2025-05-04 10:05] VITALS: BP 138/76; PULSE 65; O2SAT 99; BMI 30.3
--- OUTSIDE RECORDS SUMMARY | 2025-05-04 12:03 | XMS_ITS | Clinical Summary ---
Author Organization Formerly [facility] Address [address] [place] [address] Care Team Providers Care Case Management Manager Name Role Phone Pcp, No Primary [...] patient's age to complete this topic Insurance SELMA PILGR Care Teams Case Management Manager Relationship Specialty Start Date End Date Pcp, No PCP - General General Medicine 05/10/23
== END 2025-05-04 10:28 | disposition home or self-care (01) ==
LOC: HO.HPSW 10:01
PROVIDERS: PCP Physician Assistant; Visit Provider Nurse Practitioner Family
DX: J45.909 Unspecified asthma, uncomplicated (principal); R06.00 Dyspnea, unspecified; R91.1 Solitary pulmonary nodule
CPT/HCPCS: 99214